=== PATIENT | female | born 2000 | race Caucasian/White ===

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

== ENCOUNTER 2018-06-26 14:07 | Emergency (ER) | payer OTHER ==
[2018-06-26 14:43] VITALS: BP 119/76
--- NOTE | 2018-06-26 15:15 | UC ---
UC General HPI - HPI Summary HPI Summary: Pt presents for evaluation of her cough for 1 week. she states that she has been coughing without any relief for 1 week. she states on occasion she has a productive cough. she denies any fever. she states her throat is very dry. she did state that she has crohn's and she receives infusions. she states she is suppose to get an infusion on 07/08. She is slightly worried because she states that she cannot take all antibiotics due to her crohn's disease. she denies any nausea/vomiting. - History of Current Complaint Chief Complaint: UCGeneralIllness Stated Complaint: SINUSES,HEADACHE,COUGH Hx Obtained From: Patient Hx Last Menstrual Period: 06/19/18 Onset/Duration: Lasting Days - 7 Timing: Constant Onset Severity: Moderate Pain Intensity: 0 - Allergy/Home Medications Allergies/Adverse Reactions: Allergies Allergy/AdvReac Type Severity Reaction Status Date / Time No Known Allergies Allergy Verified 06/26/18 14:44 Home Medications: Home Medications Norgestimate-Ethinyl Estradiol [Sprintec 28 Day Tablet] 1 tab PO DAILY 06/26/18 [History Confirmed 06/26/18] Spironolactone TAB* [Aldactone TAB*] 25 mg PO BID 06/26/18 [History Confirmed ] PMH/Surg Hx/FS Hx/Imm Hx Previously Healthy: Yes Endocrine History: Other - Crohn's disease Other Endocrine History: reviewed GI/ History: Other - Crohn's disease Other GI/ History: reviewed - Surgical History Surgical History: Yes Surgery Procedure, Year, and Place: T&A - Family History Known Family History: Positive: None - Pt denies FMHX - Social History Occupation: Student Alcohol Use: None Substance Use Type: None Smoking Status (MU): Never Smoked Tobacco - Immunization History Vaccination Up to Date: Yes Review of Systems Constitutional: Negative Skin: Other - no rash ENT: Other - no ear ache Respiratory: Cough - occasionally productive Cardiovascular: Other - no chest pain Gastrointestinal: Other - no vomiting/diarrhea Genitourinary: Other - no hematuria Motor: Other - no weakness Musculoskeletal: Other: - no calf tenderness Neurological: Other - mild headache All Other Systems Reviewed And Are Negative: No Physical Exam Triage Information Reviewed: Yes Appearance: Well-Appearing, No Pain Distress, Well-Nourished Vital Signs: Initial Vital Signs Temp 98.2 F 06/26/18 14:38 Pulse 85 06/26/18 14:38 Resp 18 06/26/18 14:38 BP 119/76 06/26/18 14:38 Pulse Ox 98 06/26/18 14:38 Vital Signs Reviewed: Yes Eye Exam: Normal Eyes: Positive: Conjunctiva Clear ENT: Positive: Pharyngeal erythema, Other - TMs nl bilaterally Dental Exam: Normal Neck exam: Normal Neck: Positive: Supple Respiratory: Positive: Chest non-tender, Wheezing - very mild Cardiovascular Exam: Normal Abdomen Description: Positive: Nontender Musculoskeletal Exam: Normal Musculoskeletal: Positive: Strength Intact Neurological: Positive: Alert, Muscle Tone Normal Psychological Exam: Normal Skin Exam: Normal Re-Evaluation - Re-Evaluation First Eval Re-Evaluation Time: 15:45 Course/Dx - Differential Dx - Multi-Symptom Differential Diagnoses: Other - pneumonia, bronchitis, influenza, asthma Provider Diagnoses: upper respiratory infection Discharge - Sign-Out/Discharge Documenting (check all that apply): Patient Departure All imaging exams completed and their final reports reviewed: No Studies - Discharge Plan Condition: Stable Disposition: HOME Prescriptions: Albuterol HFA INHALER* [Ventolin HFA Inhaler*] 1 - 2 puff INH Q4H PRN #1 mdi MDD 12 PRN Reason: Shortness Of Breath Azithromyxin NAYLA (NF) [Z-Nayla (Zithromax) 250 mg tabs #6] 2 tab PO .TODAY, THEN 1 DAILY #6 tab Codeine Phosphate/Guaifenesin [Codeine/Guaifenesin 100-10 mg/5Ml] 5 ml PO Q12HR #60 hernan MDD 10 predniSONE TAB* [Deltasone 20 MG TAB*] 60 mg PO DAILY #15 tab Spacer/Holding Chamber (NF) [Easivent CHAMBER (NF)] 1 canister INH Q4HR #1 device Patient Education Materials: Upper Respiratory Infection (ED), Acute Bronchitis (ED) Referrals: No Primary Care Phys,NOPCP [Primary Care Provider] - [facility] [Outside] Additional Instructions: Please follow up with your primary care physician. return if worse or any new symptoms. It is important to take all medications as previously instructed. - Billing Disposition and Condition Condition: STABLE Disposition: Home
== END 2018-06-26 15:54 | disposition home or self-care (01) ==
LOC: UCCORT 14:07
DX: J06.9 Acute upper respiratory infection, unspecified (principal)
CPT/HCPCS: 99212; G0463

== ENCOUNTER 2019-07-10 07:00 | Emergency (ER) | payer OTHER ==
[2019-07-10 07:19] VITALS: BP 109/77
--- NOTE | 2019-07-10 08:09 | UC ---
Skin Complaint HPI - HPI Summary HPI Summary: red spot on her right foot x 1 week , the rash is red mildly raised, mild tenderness, no known injury , has been applying anti-fungal cream that is making it worse no discharge, no fever, no chills - History of Current Complaint Chief Complaint: UCSkin Time Seen by Provider: 07/10/19 07:31 Stated Complaint: FOOT CONCERN Hx Obtained From: Patient Hx Last Menstrual Period: 06/19/18 ?: No Onset/Duration: Gradual Onset, Lasting Weeks - 1, Still Present Onset Severity: Mild Current Severity: Mild Pain Intensity: 0 Pain Scale Used: 0-10 Numeric Location: Discrete - right foot Character: Swelling, Pain, Redness, Raised, Painful Aggravating Factor(s): Nothing Alleviating Factor(s): Nothing Associated Signs & Symptoms: Positive: Negative - Allergy/Home Medications Allergies/Adverse Reactions: Allergies Allergy/AdvReac Type Severity Reaction Status Date / Time No Known Allergies Allergy Verified 07/10/19 07:19 PMH/Surg Hx/FS Hx/Imm Hx Previously Healthy: Yes - Surgical History Surgical History: Yes Surgery Procedure, Year, and Place: T&A - Family History Known Family History: Positive: None - Pt denies FMHX Negative: Diabetes - Social History Alcohol Use: None Substance Use Type: None Smoking Status (MU): Never Smoked Tobacco - Immunization History Vaccination Up to Date: Yes Review of Systems All Other Systems Reviewed And Are Negative: Yes Constitutional: Positive: Negative Skin: Positive: Rash Eyes: Positive: Negative ENT: Positive: Negative Is Patient Immunocompromised?: No Physical Exam Triage Information Reviewed: Yes Appearance: Well-Appearing, No Pain Distress, Well-Nourished Vital Signs: Initial Vital Signs Temp 98.3 F 07/10/19 07:14 Pulse 60 07/10/19 07:14 Resp 16 07/10/19 07:14 BP 109/77 07/10/19 07:14 Pulse Ox 100 07/10/19 07:14 Vital Signs Reviewed: Yes Eye Exam: Normal Eyes: Positive: Conjunctiva Clear ENT: Positive: Normal ENT inspection, Hearing grossly normal, Pharynx normal Neck exam: Normal Neck: Positive: Supple Respiratory: Positive: Chest non-tender, Lungs clear, Normal breath sounds Cardiovascular: Positive: RRR, No Murmur, Pulses Normal Skin: Positive: Rashes - rash right foot proximal to right great toe, mild erythem , raised, mild tenderness no discharge Course/Dx - Diagnoses Provider Diagnosis: Superficial bruising of foot Discharge ED - Sign-Out/Discharge Documenting (check all that apply): Patient Departure All imaging exams completed and their final reports reviewed: No Studies - Discharge Plan Condition: Stable Disposition: HOME Referrals: No Primary Care Phys,NOPCP [Primary Care Provider] - Additional Instructions: skin lesion on the foot, most likely a bruise , not concern about any fungal / viral or bacterial infection at this time cont. to monitor , follow up as needed - Billing Disposition and Condition Condition: STABLE Disposition: Home
== END 2019-07-10 07:36 | disposition home or self-care (01) ==
LOC: UCCORT 07:00
DX: S90.31XA Contusion of right foot, initial encounter (principal); X58.XXXA Exposure to other specified factors, initial encounter; Y92.9 Unspecified place or not applicable
CPT/HCPCS: 99211; G0463